=== PATIENT | female | born 1995 | race Caucasian/White ===

== ENCOUNTER 2016-07-25 13:54 | Emergency (ER) | payer OTHER, BC ==
[2016-07-25 14:31] VITALS: BP 125/69
[2016-07-25 15:58] LABS: Urine Bacteria Absent (Absent); Urine Bilirubin Negative (Negative); Urine Glucose Negative (Negative); Urine Nitrite Negative (Negative)
[2016-07-25] MEDS ORDERED: NS 0.9% 1000 ML* 1,000 ML IV ONE (17:26)
--- NOTE | 2016-07-25 17:28 | ED ---
Dizziness - HPI Summary HPI Summary: 21 year old female presents today accompanied by a friend complaining of feeling lightheaded and "jittery" since yesterday 07/25/16. She describes the dizziness to be intermittent and as though she is spinning rather than the room. Patient states she was diagnosed with a UTI/yeast infection on Friday at [facility] and has been taking Bactrim and had one dose of Diflucan on Friday. She also states she has cold-like symptoms for the past week that she has been taking Sudafed for. She is also prescribed Adderal for anxiety that she has been taking for a year. Patient says she has been drinking fluids however has not been eating much. She typically does not eat very much on a normal day basis. She admits to some nausea and no desire to eat. Also admits to high stress with school and having a history of anxiety. Denies fever , chills, vomiting, SOB, difficulty breathing and chest pain. Admits to palpitations and having similar symptoms when she suffered from her anxiety a year ago before being prescribed the Adderal. She also complains of feeling fatigued. Also admits to using her friends inhaler for the past couple of months for exertion and when working out. She has not taken the Sudafed or used the inhaler today. She does not feel nauseous now and her UTI symptoms have seem to subsided. She has had UTI's in the past and treated with antibiotics but is unsure of the names. Denied vertigo. - History Of Current Complaint Chief Complaint: EDGeneral Stated Complaint: POSS UTI/YEAST INFECTION/COLD Hx Obtained From: Patient Onset/Duration: Still Present, Suddenly Timing: Intermittent Episode Lasting - of dizziness lasting a few hours Severity Initially: Mild Severity Currently: Mild Character: Head Spinning, Lightheaded Aggravating Factor(s): Nothing Alleviating Factor(s): Rest Associated Signs And Symptoms: Positive: Nausea, Palpitations - Allergies/Home Medications Allergies/Adverse Reactions: Allergies Allergy/AdvReac Type Severity Reaction Status Date / Time No Known Allergies Allergy Verified 07/16/15 12:10 PMH/Surg Hx/FS Hx/Imm Hx Endocrine/Hematology History: Denies: Hx Diabetes, Hx Thyroid Disease Cardiovascular History: Denies: Hx Hypertension Respiratory History: Denies: Hx Asthma, Hx Chronic Obstructive Pulmonary Disease (COPD) GI History: Denies: Hx Ulcer - Surgical History Surgery Procedure, Year, and Place: PEBBLE REMOVED FROM LEFT FOOT Infectious Disease History: No Infectious Disease History: Denies: Hx Hepatitis, Hx Human Immunodeficiency Virus (HIV), Traveled Outside the [place] in Last 30 Days - Family History Known Family History: Positive: None - Social History Alcohol Use: Occasionally Substance Use Type: Reports: None Substance Use Comment - Amount & Last Used: adderall prescribed Smoking Status (MU): Never Smoked Tobacco Review of Systems Constitutional: Negative Eyes: Negative Positive: Nasal Discharge Positive: Palpitations Respiratory: Negative Positive: Nausea Genitourinary: Negative Musculoskeletal: Negative Skin: Negative Neurological: Other - lightheadedness Positive: Anxious All Other Systems Reviewed And Are Negative: Yes Physical Exam Triage Information Reviewed: Yes Vital Signs On Initial Exam: Initial Vitals Temp Pulse Resp BP Pulse Ox 98.9 F 100 20 125/69 100 07/25/16 14:24 07/25/16 14:24 07/25/16 14:24 07/25/16 14:24 07/25/16 14:24 Vital Signs Reviewed: Yes Appearance: Positive: Well-Appearing, No Pain Distress, Well-Nourished Skin: Positive: Warm, Skin Color Reflects Adequate Perfusion, Dry ENT: Positive: Normal ENT inspection, Hearing grossly normal, Pharynx normal, Nasal congestion, TMs normal - EAC normal, bilateral Dental: Negative: Percussion Tenderness @, Cervical Lymphadenopathy Neck: Positive: Supple, Nontender, No Lymphadenopathy Respiratory/Lung Sounds: Positive: Clear to Auscultation, Breath Sounds Present. Negative: Rales, Rhonchi, Wheezes Cardiovascular: Positive: Normal, RRR, Pulses are Symmetrical in both Upper and Lower Extremities, Tachycardia Abdomen Description: Positive: Nontender, No Organomegaly, Soft. Negative: Bruit, CVA Tenderness (R), CVA Tenderness (L), Distended, Guarding Bowel Sounds: Positive: Present Musculoskeletal: Positive: Normal, Strength/ROM Intact Neurological: Positive: Normal, Sensory/Motor Intact, Alert, Oriented to Person Place, Time, CN Intact II-III, Reflexes Intact, NV Bundle Intact Distally, Normal Gait, Heel to Toe - normal, Finger to Nose - normal, Speech Normal. Negative: [place] Psychiatric: Positive: Affect/Mood Appropriate, Anxious - [place] Coma Scale Best Eye Response: 4 - Spontaneous Best Motor Response: 6 - Obeys Commands Best Verbal Response: 5 - Oriented Diagnostics - Vital Signs Vital Signs Temp Pulse Resp BP Pulse Ox 07/25/16 14:24 98.9 F 100 20 125/69 100 - Laboratory Lab Results: Lab Results 07/25/16 Range/Units 15:45 Urine Color Yellow Urine Appearance Clear Urine pH 6.0 (5-9) Ur Specific [place] 1.008 L (1.010-1.030) Urine Protein Negative (Negative) Urine Ketones Negative (Negative) Urine Blood 1+ H (Negative) Urine Nitrate Negative (Negative) Urine Bilirubin Negative (Negative) Urine Urobilinogen Negative (Negative) Ur Leukocyte Esterase Negative (Negative) Urine WBC (Auto) Trace(0-5/hpf) (Absent) Urine RBC (Auto) 1+(3-5/hpf) H (Absent) Ur Squamous Epith Cells Present H (Absent) Urine Bacteria Absent (Absent) Urine Glucose Negative (Negative) Result Diagrams: 07/25/16 17:48 07/25/16 17:48 Lab Statement: Any lab studies that have been ordered have been reviewed, and results considered in the medical decision making process. Dizzy Course/Dx - Course Course Of Treatment: EKG and Labs were drawn to rule out any underlying causes such as anemia, dehydraton, electrolyte imbalance, arrythmia, and infection. Given 1 liter of fluids. All labs were normal. Patient will be advised to stop taking the Sudafed as it may have been an interaction with both the inhaler and the Adderal causing her symptoms. Also stated to take her last dose of Bactrim and discontinue taking UTI/yeast infection medications. Educated on possible reaction to medication combinations. Also possible she is experiencing some anxiety. She also was suffering from a cold. A combination of these may have been causing her symptoms. Instructed to give it another day or two to see if symptoms persist. Advised to follow up with primary care or return if symptoms worsen, persist or new symptoms develop. Thyroid was suggested to be checked at this time. Encouraged to drink plenty of fluids and to eat. Patient was feeling better towards the end of visit just complained of some lightheadedness. Appeared to be an anxious young women. - Diagnoses Differential Diagnosis/HQI/PQRI: Anxiety, Dysrhythmia, Medication Reaction, Other - infection Provider Diagnoses: Anxiety, Medication side effects Discharge - Discharge Plan Condition: Stable Disposition: HOME Patient Education Materials: Anxiety (ED), Lightheadedness (ED), Pseudoephedrine (By mouth) Forms: *School Release Referrals: No Primary Care Phys,NOPCP [Primary Care Provider] - [facility] [place]] Additional Instructions: Stop using Sudafed. Finish last dose of Bactrim for UTI however do not take second dose of Diflucan, yeast infection medication, unless you develop symptoms of whit discharge and itchiness. Drink plenty of fluids, rest and try and eat! If symptoms persist or worsen please return for further work-up or make an appointment with your primary care provider and discuss possible side effects of Adderal medication. If you develop symptoms of difficulty breathing, chest pain, palpitations or fever/chills please seek medical attention promptly.
[2016-07-25 17:57] LABS: Hematocrit 42 % (35-47); Hemoglobin 13.9 g/dl (12.0-16.0); Mean Corpuscular HGB Conc 33 g/dl (31-36); Mean Corpuscular Hemoglobin 30 pg (27-31); Mean Corpuscular Volume 90 fL (80-97); Mean Platelet Volume 9 um3 (7.4-10.4); Red Blood Count 4.67 10^6/ul (4.0-5.4); Red Cell Distribution Width 14 % (10.5-15); White Blood Count 7.2 10^3/ul (3.5-10.8)
[2016-07-25 18:14] LABS: Albumin 4.3 g/dL (3.2-5.2); BUN/Creatinine Ratio 7.8 (8-20); Calcium 9.6 mg/dL (8.6-10.3); EGFR African American 87.9 (>60); EGFR Non-African American 68.3 (>60); Globulin 3.4 g/dL (2-4); Potassium 3.6 mmol/L (3.5-5.0); Total Bilirubin 0.4 mg/dL (0.2-1.0); Total Protein 7.7 g/dL (6.4-8.9)
== END 2016-07-25 19:35 | disposition home or self-care (01) ==
LOC: ED 13:54
DX: F41.9 Anxiety disorder, unspecified (principal); T50.905A Adverse effect of unspecified drugs, medicaments and biological substances, initial encounter; R42 Dizziness and giddiness; Y92.9 Unspecified place or not applicable
CPT/HCPCS: 36415; 80053; 81003; 81015; 84702; 85025; 93005; 96360; 99282

== ENCOUNTER 2016-08-07 15:07 | Emergency (ER) | payer OTHER ==
[2016-08-07 15:22] VITALS: BP 108/74
[2016-08-07 16:26] LABS: EBV Response NO
--- NOTE | 2016-08-07 17:13 | UC ---
FLU HPI - HPI Summary HPI Summary: 3 WEEKS AGO HAD COLD, RESOLVED AFTER VISIT TO ED WITH FLUIDS; FIVE DAYS AGO BEGAN HAVING SORE THROAT COUGH AND CHILLS - History of Current Complaint Chief Complaint: UCRespiratory Stated Complaint: FLU LIKE ILLNESS Time Seen by Provider: 08/07/16 15:15 Hx Obtained From: Patient Hx Last Menstrual Period: 3 weeks Onset/Duration: Gradual Onset, Lasting Days, Still Present Severity Currently: Mild Severity Initially: Mild Associated Signs & Symptoms: Positive: F/C, Cough, Sore Throat - Allergy/Home Medications Allergies/Adverse Reactions: Allergies Allergy/AdvReac Type Severity Reaction Status Date / Time No Known Allergies Allergy Verified 08/07/16 15:16 Home Medications: Home Medications Amphetamine MIXED SALT TAB* [Adderall TAB*] 20 mg PO 08/07/16 [History] Dextromethorphan-Phenylephrine [Day-Time Cold/Flu Relief 10-5-325 mg/15Ml] [History] PMH/Surg Hx/FS Hx/Imm Hx Previously Healthy: Yes Endocrine History Of: Denies: Diabetes, Thyroid Disease Cardiovascular History Of: Denies: Cardiac Disorders, Hypertension Respiratory History Of: Denies: COPD, Asthma GI/ History Of: Denies: Ulcer - Surgical History Surgical History: Yes Surgery Procedure, Year, and Place: PEBBLE REMOVED FROM LEFT FOOT - Family History Known Family History: Positive: None - Social History Occupation: Student Lives: With Family Alcohol Use: Occasionally Substance Use Type: Prescribed Substance Use Comment - Amount & Last Used: adderall prescribed Smoking Status (MU): Never Smoked Tobacco - Immunization History Most Recent Influenza Vaccination: 2015/2016 Review of Systems Constitutional: Chills Skin: Negative Eyes: Negative ENT: Sore Throat Respiratory: Cough Cardiovascular: Negative Gastrointestinal: Negative Genitourinary: Negative Motor: Negative Neurovascular: Negative Musculoskeletal: Negative Neurological: Negative Psychological: Negative All Other Systems Reviewed And Are Negative: Yes Physical Exam Triage Information Reviewed: Yes Appearance: Well-Appearing, No Pain Distress, Well-Nourished, Thin Vital Signs: Initial Vital Signs Temp 98.2 F 08/07/16 15:17 Pulse 108 08/07/16 15:17 Resp 18 08/07/16 15:17 BP 108/74 08/07/16 15:17 Pulse Ox 96 08/07/16 15:17 Vital Signs Reviewed: Yes Eye Exam: Normal Eyes: Positive: Conjunctiva Clear ENT: Positive: Hearing grossly normal, Pharyngeal erythema, TMs normal Dental Exam: Normal Neck exam: Normal Neck: Positive: Supple, Nontender, No Lymphadenopathy, Other: - NEGATIVE KERNIGS ; NEGATIVE BRUD[place]INSKIS. Negative: Nuchal Rigidity Respiratory Exam: Normal Respiratory: Positive: Chest non-tender, Lungs clear, Normal breath sounds, No respiratory distress, No accessory muscle use Cardiovascular Exam: Normal Cardiovascular: Positive: RRR, No Murmur, Pulses Normal, Brisk Capillary Refill Abdominal Exam: Normal Abdomen Description: Positive: Nontender, No Organomegaly Musculoskeletal Exam: Normal Musculoskeletal: Positive: Strength Intact, ROM Intact, No Edema Neurological Exam: Normal Psychological Exam: Normal Psychological: Positive: Normal Response To Family Skin Exam: Normal Flu Course/Dx - Differential Dx/Diagnosis Differential Diagnosis/HQI/PQRI: Influenza, RSV, Upper Respiratory Infection Provider Diagnoses: PHARYGITIS. VIRAL SYNDROME Discharge - Discharge Plan Condition: Stable Disposition: HOME Patient Education Materials: Viral Syndrome (ED) Forms: *School Release Referrals: [facility] [Outside] No Primary Care Phys,NOPCP [Primary Care Provider] -
[2016-08-07 18:37] LABS: Hematocrit 41 % (35-47); Hemoglobin 13.7 g/dl (12.0-16.0); Mean Corpuscular HGB Conc 33 g/dl (31-36); Mean Corpuscular Hemoglobin 30 pg (27-31); Mean Corpuscular Volume 90 fL (80-97); Mean Platelet Volume 10 um3 (7.4-10.4); Red Blood Count 4.57 10^6/ul (4.0-5.4); Red Cell Distribution Width 14 % (10.5-15); White Blood Count 10.8 10^3/ul (3.5-10.8)
[2016-08-07 18:42] LABS: Manual Entry Verification ROB0080; Mono Internal Control QC Line Present
== END 2016-08-07 16:22 | disposition home or self-care (01) ==
LOC: UCEAST 15:07
DX: B34.9 Viral infection, unspecified (principal); J02.9 Acute pharyngitis, unspecified
CPT/HCPCS: 36415; 85025; 86308; 87502; 99211; G0463